=== PATIENT | male | born 1995 | race Caucasian/White ===

== ENCOUNTER 2018-01-25 21:38 | Emergency (ER) | payer MEDICAID, SELFPAY ==
[2018-01-25 21:39] VITALS: BP 127/70; PULSE 76; RESP 16; TEMP 37; O2SAT 100; BMI 25.7
--- NOTE | 2018-01-25 21:55 | RAD_ITS ---
STUDY: X-RAY - RIGHT HAND REASON FOR EXAM: Male, 22 years old. Injury and pain TECHNIQUE: Three view(s) of the hand were obtained. COMPARISON: None. FINDINGS: Bones: There are no acute osseous abnormalities. There is abnormal curvature of the fifth finger. Joints: The visualized joints are unremarkable. Soft tissues: The soft tissues are unremarkable. Foreign body: None RAD/Hand Min 3 Views IMPRESSION: No acute fractures are seen. There is abnormal curvature at the fifth PIP joint, either positional or due to subluxation. Electronically Signed: Nelly Winston MD at 22:48 EDT Tel Direct: [phone], Service support ,
--- NOTE | 2018-01-25 22:44 | ED.DCSUM_ITS ---
- ER Visit Summary Date of Service: 01/25/18 Chief Complaint: Right hand injury History of Present Illness: The patient is a 22 M since with right hand injury. The patient states he is right-hand dominant. 2 days ago he punched a door. He states that he had some swelling over his middle knuckle. He states that 2 weeks ago, he also hit his hand. He has been having some pain since. He denies any history of fracture. Last tetanus was less than 5 years ago. Physical Examination: Patient has mild tenderness over the third MCP. There is no abrasion. There is no significant contusion. Extension is preserved. Flexion is preserved. 2+ pulses in the wrist. Cap refill is less than 2 seconds in the hand. There is no rotational deformity. Test Results: [] Emergency Department Course and Treatment: X-rays were obtained of the right hand. There is no evidence of acute fracture. He did feel symptoms are secondary to contusion. Patient will continue anti-inflammatories and ice. He will be discharged home. Treatment Plan: [] Disposition: Charge Impression: 1. Right hand contusion This note was generated with [employer] dictation software. It may contain incorrect words, spelling, and punctuation that were not noted in review of the chart prior to signing ED Disposition - Plan for ED Patient: Disposition: Home or Assisted Living Chief Complaint: Upper Extremity Injury Instructions: ED Contusion Upper Ext Referrals: Care Physician,No Primary [Primary Care Provider] -
--- NOTE | 2018-01-25 22:49 | ED.RN ---
DISCHARGE INSTRUCTIONS GIVEN TO AND REVIEWED WITH PATIENT, PATIENT DENIES QUESTIONS OR CONCERNS AND VOICES UNDERSTANDING OF DISCHARGE INSTRUCTIONS. PT AMBULATES OUT OF ROOM WITHOUT DIFFICULTY.
== END 2018-01-25 22:50 | disposition home or self-care (01) ==
LOC: ED 22:28
PROVIDERS: Emergency Provider Emergency Medicine
DX: S60.031A Contusion of right middle finger without damage to nail, initial encounter (principal); W22.8XXA Striking against or struck by other objects, initial encounter; Y93.89 Activity, other specified; Y92.9 Unspecified place or not applicable
CPT/HCPCS: 73130; 99282